=== PATIENT | female | born 1975 | race African-American/Black ===

== ENCOUNTER 2020-07-20 06:55 | Emergency (ER) | payer MEDICAID ==
[~2020-07-20] VITALS: Ht 165.1 cm; Wt 65.8 kg
--- NOTE | 2020-07-20 07:39 | Emergency Room Report ---
History of Present Illness General Chief Complaint: Female Urogenital Problems Source: Patient Present Illness HPI Patient is a 45-year-old female presents for increased vaginal bleeding. Denies any definite and stated that she had onset of period approximately 8 to 9 days ago. Reportedly had normal Pap smear 1 year ago. Reports being sexually active. Denies any vaginal discharge. No recent fever. No bleeding from other sites. No prior history of anticoagulant use. Lower abdominal cramping. Last had any ultrasound imaging approximately 10 years ago. Allergies: Coded Allergies: No Known Allergies (Verified Allergy, Unknown, 12/22/08) COVID-19 Screening Contact w/high risk pt: No Experienced COVID-19 symptoms?: No COVID-19 Testing performed BUTTERMAKER HELPER: No Patient History Past Medical History: see triage record Now: No Reviewed Nursing Documentation: PMH: Agreed; PSxH: Agreed Nursing Documentation-PMH Past Medical History: No Stated History Review of Systems All Other Systems: negative except mentioned in HPI Physical Exam Vital Signs Date Time Temp Pulse Resp B/P (MAP) Pulse Ox O2 Delivery O2 Flow Rate FiO2 07/20/20 07:18 85 16 108/71 (83) 99 Room Air Sp02 EP Interpretation: reviewed, normal General Appearance: normal inspection, well appearing, no apparent distress, alert, GCS 15 Head: atraumatic ENT: normal ENT inspection, hearing grossly normal, normal voice Neck: normal inspection, full range of motion, supple, no bony tend Respiratory: normal inspection, lungs clear, normal breath sounds, no respiratory distress, no retraction, no wheezing Cardiovascular #1: regular rate, rhythm, no edema Gastrointestinal: normal inspection, normal bowel sounds, non tender, soft, no guarding, no hernia Genitourinary: no CVA tenderness Musculoskeletal: normal inspection, back normal, normal range of motion Neurologic: alert, motor strength/tone normal, manager specialty III-XII nml as tested, oriented x3, responsive, speech normal, normal inspection Psychiatric: normal inspection, judgement/insight normal, mood/affect normal Medical Decision Making Diagnostic Impression: Primary Impression: Metrorrhagia Additional Impression: Fibroid uterus ER Course Patient presents for abdominal pain. Differential diagnosis include was not limited to coagulopathy, incomplete anemia among others. Because of complexity of patient's case laboratory tests and imaging studies were ordered. Patient's bleeding does not appear to be very brisk at this time. As she reports having intermittent stoppage of bleeding. Pelvic ultrasound was ord ered. Pelvic ultrasound showed intrauterine fibroids. Patient was started on IV fluids. test was negative. Patient's initial laboratory testing showed adequate hemoglobin. Patient given prescription for tranexamic acid. Patient is agreeable with discharge plan.Patient was advised to follow-up with EAR NOSE THROAT PHYSICIAN. She was given Toradol for pain. She is advised to return if worse. This medical record is generated with [employer] campus receptionist software. There may be some campus receptionist discrepancies related to use of this software Labs Test 07/20/20 07:41 07/20/20 07:51 07/20/20 08:10 White Blood Count 5.6 K/UL (4.8-10.8) Red Blood Count 3.61 M/UL (4.20-5.40) Hemoglobin 10.9 G/DL (12.0-16.0) Hematocrit 33.1 % (37.0-47.0) Mean Corpuscular Volume 92 FL (80-99) Mean Corpuscular Hemoglobin 30.3 PG (27.0-31.0) Mean Corpuscular Hemoglobin Concent 33.0 G/DL (32.0-36.0) Red Cell Distribution Width 12.7 % (11.6-14.8) Platelet Count 242 K/UL (150-450) Mean Platelet Volume 6.3 FL (6.5-10.1) Neutrophils (%) (Auto) 62.5 % (45.0-75.0) Lymphocytes (%) (Auto) 28.2 % (20.0-45.0) Monocytes (%) (Auto) 7.5 % (1.0-10.0) Eosinophils (%) (Auto) 1.2 % (0.0-3.0) Basophils (%) (Auto) 0.6 % (0.0-2.0) Sodium Level 141 MMOL/L (136-145) Potassium Level 4.0 MMOL/L (3.5-5.1) Chloride Level 106 MMOL/L (98-107) Carbon Dioxide Level 28 MMOL/L (21-32) Anion Gap 7 mmol/L (5-15) Blood Urea Nitrogen 12 mg/dL (7-18) Creatinine 0.7 MG/DL (0.55-1.30) Estimat Glomerular Filtration Rate > 60 mL/min (>60) Glucose Level 99 MG/DL (74-106) Calcium Level 8.6 MG/DL (8.5-10.1) Total Bilirubin 0.3 MG/DL (0.2-1.0) Aspartate Amino Transf (AST/SGOT) 14 U/L (15-37) Alanine Aminotransferase (ALT/SGPT) 18 U/L (12-78) Alkaline Phosphatase 41 U/L (46-116) Total Protein 7.0 G/DL (6.4-8.2) Albumin 3.7 G/DL (3.4-5.0) Globulin 3.3 g/dL Albumin/Globulin Ratio 1.1 (1.0-2.7) Lipase 140 U/L (73-393) Urine Color Pale yellow Urine Appearance Clear Urine pH 6 (4.5-8.0) Urine Specific [place] 1.020 (1.005-1.035) Urine Protein Negative (NEGATIVE) Urine Glucose (UA) Negative (NEGATIVE) Urine Ketones Negative (NEGATIVE) Urine Blood 5+ (NEGATIVE) Urine Nitrite Negative (NEGATIVE) Urine Bilirubin Negative (NEGATIVE) Urine Urobilinogen Normal MG/DL (0.0-1.0) Urine Leukocyte Esterase Negative (NEGATIVE) Urine RBC 60-80 /HPF (0 - 2) Urine WBC 0-2 /HPF (0 - 2) Urine Squamous Epithelial Cells Few /LPF (NONE/OCC) Urine Bacteria Few /HPF (NONE) Urine Mucus Many /LPF (NONE/OCC) Urine HCG, Qualitative Negative (NEGATIVE) Last Vital Signs Date Time Temp Pulse Resp B/P (MAP) Pulse Ox O2 Delivery O2 Flow Rate FiO2 07/20/20 07:18 85 16 108/71 (83) 99 Room Air Status: improved Disposition: HOME, SELF-CARE Condition: Stable Scripts Tranexamic Acid (TRANEXAMIC ACID) 650 Mg Tablet 650 MG PO DAILY, #5 TAB Prov: Terry Johansen MD 07/20/20 Ferrous Sulfate* (FERROUS SULFATE*) 325 Mg Tablet 325 MG ORAL DAILY for SUPPLEMENT, #30 TAB 0 Refills Prov: Terry Johansen MD 07/20/20 Ibuprofen* (MOTRIN*) 600 Mg Tablet 600 MG ORAL Q8H PRN for FOR PAIN, #20 TAB 0 Refills Prov: Terry Johansen MD 07/20/20 Terry Johansen MD Jul 20, 2020 07:39
--- NOTE | 2020-07-20 07:50 | NUR ---
Blood specimens drawn and taken to lab.
--- NOTE | 2020-07-20 07:58 | NUR ---
Patient presenting to the ER for increased vaginal bleeding with lower abdominal cramping.Her period began 8-9 days ago. Denies . V/S WNL. Afebrile. No prior history of anticoagulant use.
[2020-07-20 07:59] LABS: BASOPHILS % (AUTO) 0.6 % (0.0-2.0); EOSINOPHILS % (AUTO) 1.2 % (0.0-3.0); HEMATOCRIT 33.1 % (37.0-47.0); HEMOGLOBIN 10.9 G/DL (12.0-16.0); LYMPHOCYTES % (AUTO) 28.2 % (20.0-45.0); MEAN CORPUSCULAR VOLUME 92 FL (80-99); MONOCYTES % (AUTO) 7.5 % (1.0-10.0); NEUTROPHILS % (AUTO) 62.5 % (45.0-75.0); PLATELET COUNT 242 K/UL (150-450); RED BLOOD COUNT 3.61 M/UL (4.20-5.40); RED CELL DISTRIBUTION WIDTH 12.7 % (11.6-14.8); WHITE BLOOD COUNT 5.6 K/UL (4.8-10.8)
[2020-07-20 08:01] LABS: APPEARANCE,URINE CLEAR; BILIRUBIN, URINE NEGATIVE (NEGATIVE); COLOR,URINE PALE YELLOW; GLUCOSE, URINE (UA) NEGATIVE (NEGATIVE); KETONES,URINE NEGATIVE (NEGATIVE); LEUKOCYTE ESTERASE ,URINE NEGATIVE (NEGATIVE); NITRITE,URINE NEGATIVE (NEGATIVE); PH,URINE 6 (4.5-8.0); PROTEIN,URINE NEGATIVE (NEGATIVE); UROBILINOGEN,URINE NORMAL MG/DL (0.0-1.0)
[2020-07-20 08:03] VITALS: BP 107/73
--- NOTE | 2020-07-20 08:07 | NUR ---
U/S tech in room
[2020-07-20 08:08] LABS: ANION GAP 7 mmol/L (5-15); BLOOD UREA NITROGEN 12 mg/dL (7-18); CALCIUM 8.6 MG/DL (8.5-10.1); CARBON DIOXIDE 28 MMOL/L (21-32); CHLORIDE 106 MMOL/L (98-107); CREATININE 0.7 MG/DL (0.55-1.30); SODIUM 141 MMOL/L (136-145)
[2020-07-20 08:13] LABS: ALANINE AMINOTRANSFERASE 18 U/L (12-78); ALBUMIN 3.7 G/DL (3.4-5.0); ALBUMIN/GLOBULIN RATIO 1.1 (1.0-2.7); ALKALINE PHOSPHATASE 41 U/L (46-116); ASPARTATE AMINO TRANSFERASE 14 U/L (15-37); BILIRUBIN,TOTAL 0.3 MG/DL (0.2-1.0)
[2020-07-20] MEDS ORDERED: Ketorolac 30mg Inj IV ONE (08:45)
[2020-07-20] MEDS ORDERED: IBUPROFEN600 M1 ORAL (09:05)
[2020-07-20] MEDS ORDERED: FERROUS SULFAT325 MG ORAL (09:05)
[2020-07-20 09:19] LABS: INR 1.2 (0.9-1.1)
[2020-07-20] MEDS ORDERED: TRANEXAMIC ACI650 MG PO (09:26)
--- NOTE | 2020-07-20 09:48 | Diagnostic Imaging Report ---
EXAM: US Pelvic w/Transvag CLINICAL HISTORY: Pelvic pain. COMPARISON: None TECHNIQUE: Ultrasound examination of the pelvis includes grayscale images, and color and spectral doppler analysis. FINDINGS: Transabdominal and transvaginal technique utilized. The uterus measures 9 x 6.5 x 5.1 cm and is retroflexed. Myometrium is heterogeneous. There is a heterogeneous mass identified in the central aspect of the uterus resembling a fibroid measuring 4 cm. It appears to be intramural to submucosal in position. Endometrial stripe is obscured. Right ovary measures 2.6 x 1.9 cm. Left ovary measures 2.6 x 2.2 cm with a follicular cyst. Normal vascular flow seen bilaterally. There are nabothian cysts in the cervix.. Small amount of free fluid noted within the cul-de-sac. IMPRESSION: HETEROGENEOUS MASS IN THE UTERUS RESEMBLING A FIBROID WHICH APPEARS INTRAMURAL TO SUBMUCOSAL IN POSITION. LEFT FOLLICULAR CYST. NABOTHIAN CYSTS.
[2020-07-20 09:52] VITALS: BP 97/49
--- NOTE | 2020-07-20 09:52 | NUR ---
ER DISCHARGE NOTE: Patient is cleared to be discharged per ERMD, pt is aox4, on room air, with stable vital signs. pt was given dc and prescription instructions, pt was able to verbalize understanding, pt id band and iv site removed without complications. pt is able to ambulate with steady gait. pt took all belongings.
== END 2020-07-20 09:52 | disposition home or self-care (01) ==
LOC: EMR 08:00
DX: N92.1 Excessive and frequent menstruation with irregular cycle (principal); D25.1 Intramural leiomyoma of uterus
CPT/HCPCS: 36415; 76830; 76856; 80053; 81003; 81025; 83690; 85025; 85610; 85730; 96374; J1885; Z7502; 99284